=== PATIENT | male | born 1945 | race Caucasian/White ===

== ENCOUNTER 2017-12-15 15:50 | Emergency (ER) | payer OTHER ==
[~2017-12-15] VITALS: Ht 165.1 cm; Wt 72.7 kg
--- NOTE | ~2017-12-15 | MORECARE ---
CASE MANAGEMENT DISCHARGE SUMMARY PATIENT: SEYMOUR ABARCA UNIT: [id number] ADM DATE: AGE: 72 : [birth year] SEX: M ROOM/BED: AUTHOR: YISSEL JOSÉ PHYSICIAN: REFERRING PHYSICIAN: SHLOMO JJ MD DATE OF SERVICE: 12/15/17 Discharge Plan Patient Name: SEYMOUR ABARCA Facility: [facility]:[place] : 1945 Planned Disposition: Anticipated Discharge Date: Discharge Date: Expected LOS: 0 Initial Reviewer: [email or web address] Initial Review Date: 12/15/2017 Generated: 12/15/17 6:27 pm Comments DCP- Discharge Planning Updated by [email or web address]: Enid Gutierrez on 12/15/17 4:[address] [facility] CM contacted [facility] with [facility], provided required information for patient, MD, RN and hospital phone/fax numbers. Await fax and CB. Enid Gutierrez RN, CM Patient Name: SEYMOUR ABARCA Page [phone] at 1727 All edits/amendments must be made on the electronic document DICTATION DATE: 12/15/171725 FURNITURE RESTORER: CAREN 12/15/171725 RPT#: [id number] DC DATE: STATUS: REG ER [facility] [address] [place] [address] END OF REPORT
--- NOTE | ~2017-12-15 | MORECARE ---
CASE MANAGEMENT DISCHARGE SUMMARY PATIENT: SEYMOUR ABARCA UNIT: [id number] ADM DATE: AGE: 72 : [birth year] SEX: M ROOM/BED: AUTHOR: YISSEL JOSÉ PHYSICIAN: REFERRING PHYSICIAN: SHLOMO JJ MD DATE OF SERVICE: 12/20/17 Discharge Plan Patient Name: SEYMOUR ABARCA Facility: [facility]:[place] : 1945 Planned Disposition: Anticipated Discharge Date: Discharge Date: 12/15/2017 Expected LOS: 0 Initial Reviewer: [email or web address] Initial Review Date: 12/15/2017 Generated: 12/20/17 3:26 pm Comments DCP- Discharge Planning Updated by [email or web address]: Enid Gutierrez on 12/15/17 5:[address] Patient request to [facility]. CM contacted Kimberly with [facility], provided required information for patient, MD, RN and hospital phone/fax numbers. Await fax and CB. Enid Gutierrez RN Last DP export: 12/15/17 5:27 p Patient Name: SEYMOUR ABARCA Page [phone] at 1426 All edits/amendments must be made on the electronic document DICTATION DATE: 12/20/171424 CONTROL ROOM AGENT: CRAEN 12/20/171424 RPT#: [id number] DC DATE:12/15/17 STATUS: [address] [id number] END OF REPORT
[2017-12-15 15:58] VITALS: Ht 165.1 cm; Wt 72.7 kg
[2017-12-15 16:33] LABS: BASOPHILS 0.1 % (0-2); EOSINOPHILS 0.8 % (0-7); HEMATOCRIT 34.1 % (42.0-54.0); HEMOGLOBIN 12.4 g/dL (13.5-17.5); IMMATURE GRANULOCYTES 0.4 % (0-5); LYMPHOCYTES 15.1 % (15-50); MCH 31.2 pg (26.0-34.0); MCHC 36.4 g/dL (31.0-37.0); MCV 85.9 fL (80.0-100.0); MEAN PLATELET VOLUME 9.8 fL (7.4-10.4); MONOCYTES 5.9 % (2-11); NEUTROPHILS 77.7 % (40-80); PLATELET COUNT 232 10x3/uL (130-400); RBC 3.97 10x6/uL (4.20-6.10); RDW 12.1 % (11.5-14.5); WBC 7.7 10x3/uL (4.8-10.8)
[2017-12-15 16:51] LABS: ALBUMIN 3.5 g/dL (3.4-5.0); ALKALINE PHOSPHATASE 64 U/L (46-116); ALT (SGPT) 28 U/L (10-68); BILIRUBIN - TOTAL 0.35 mg/dL (0.2-1.3); CALCIUM 8.7 mg/dL (8.5-10.1); CARBON DIOXIDE 23.6 mmol/L (21.0-32.0); CHLORIDE - SERUM 100 mmol/L (98-107); CREATININE - SERUM 1.6 mg/dL (0.6-1.3); MAGNESIUM - SERUM 1.8 mg/dL (1.8-2.4); PHOSPHOROUS 2.9 mg/dL (2.5-4.9); POTASSIUM - SERUM 4.8 mmol/L (3.5-5.1); PROTEIN - SERUM 6.5 g/dL (6.4-8.2); SODIUM 132 mmol/L (136-145); UREA NITROGEN 23 mg/dL (7-18); eGFR NON AFRICAN AMERICAN 46 mL/min (90-120)
[2017-12-15 16:52] LABS: APPEARANCE CLEAR (CLEAR); BILIRUBIN NEGATIVE (NEGATIVE); COLOR YELLOW (YELLOW); GLUCOSE 1000 mg/dL (NEGATIVE); KETONE NEGATIVE (NEGATIVE); NITRITE NEGATIVE (NEGATIVE); PROTEIN NEGATIVE (NEGATIVE); SPECIFIC GRAVITY 1.015 (1.005-1.020); UROBILINOGEN NORMAL (NORMAL)
[2017-12-15 16:58] LABS: CALC OSMOLALITY 304 mosm/kg (275-300); GLUCOSE 750 mg/dL (74-106)
[2017-12-15 17:15] LABS: KETONE - SERUM NEGATIVE (NEGATIVE)
[2017-12-15 22:28] VITALS: BP 139/65
== END 2017-12-15 22:31 | disposition other institution (70) ==
LOC: D.ER 15:50
PROVIDERS: Emergency Medicine
DX: E11.65 Type 2 diabetes mellitus with hyperglycemia (principal); Z79.4 Long term (current) use of insulin; E86.0 Dehydration; Z98.890 Other specified postprocedural states